=== PATIENT | female | born 1945 | race Two or more races ===

== ENCOUNTER 2024-09-24 13:52 | Emergency (ER) | payer OTHER ==
[~2024-09-24] VITALS: Ht 157.5 cm; Wt 75.9 kg
--- NOTE | 2024-09-24 14:22 | ED.PDOC ---
Musculoskeletal HPI Comments 79 YEAR-OLD FEMALE PRESENTS TO THE ED VIA WHEELCHAIR WITH A CHIEF COMPLAINT OF LEFT SHOULDER PAIN S/P TRAUMA. PATIENT STATES THAT SHE WAS COMING OUT OF THE BANK, LOST BALANCE, FELL, AND HIT HER SHOULDER ON THE CURB. PATIENT STATES THAT SINCE THE INCIDENT, SHE HAS EXPERIENCED LEFT SHOULDER PAIN WITH ASSOCIATED SYMPTOMS OF DIZZINESS AND NAUSEA. PATIENT HAS NO FURTHER SYMPTOMS AT THIS TIME AND OTHERWISE DENIES SYMPTOMS OF CHEST PAIN, SYNCOPE, EMESIS, OR HEADACHE. PATIENT IS ALERT, ORIENTED X 4, AND HAS STEADY GAIT. Chief Complaint: Fall Injury Time Seen by MD: 14:15 Reviewed Notes: Medications, Allergies ( ) Allergies: Coded Allergies: Erythromycin (Verified Allergy, Unknown, 09/24/24) Home Meds Active Scripts Acetaminophen (Tylenol 8 Hour Arthritis) 650 Mg Tab, 650 MG PO TID, #30 TAB Prov:SCARLETT DEUTSCH 09/24/24 Information Source: Patient Mode of Arrival: Wheelchair Location: Left Extremity Location: Shoulder Timing: Hours Severity: Moderate Pain: Moderate Circumstances: Fall Onset of Symptoms: After Trauma Symptoms: Pain Associated signs and symptoms: Shoulder pain (LEFT ) Past Medical History PAST MEDICAL HISTORY: CKF, High Lipids Surgical History: Appendectomy, Tubal Ligation GROUP BURNER MACHINE History: No Pertinent GROUP BURNER MACHINE History Family History Family History: Reviewed,noncontributory to illness, No family hx of Cancer, No family hx of DM, No family hx of Heart edvin, No family hx of HTN, No family hx ofKidney edvin, No family hx of Liver edvin, No family hx of Lung edvin, No family hx of Stroke Social History Smoker: Non-Smoker Alcohol: Denies ETOH Use Drugs: Denies Drug Use Lives In: Home Constitutional: denies: chills, diaphoresis, fatigue, fever, malaise, sweats, weakness, others EENTM: denies: blurred vision, double vision, ear bleeding, ear discharge, ear drainage, ear pain, ear ringing, eye pain, eye redness, hearing loss, mouth pain, mouth swelling, nasal discharge, nose bleeding, nose congestion, nose pain, photophobia, tearing, throat pain, throat swelling, voice changes, others Respiratory: denies: cough, hemoptysis, orthopnea, SOB at rest, shortness of breath, SOB with excertion, stridor, wheezing, others Cardiovascular: denies: chest pain, dizzy spells, diaphoresis, Dyspnea on exertion, edema, irregular heart beat, left arm pain, lightheadedness, palpitations, PND, syncope, others Gastrointestinal: denies: abdomen distended, abdominal pain, blood streaked bowels, constipated, diarrhea, dysphagia, difficulty swallowing, hematemesis, melena, nausea, poor appetite, poor fluid intake, rectal bleeding, rectal pain, vomiting, others Genitourinary: denies: abnormal vagina bleeding, burning, dyspareunia, dysuria, flank pain, frequency, hematuria, incontinence, pain, , vagina discharge, urgency, others Neurological: denies: dizziness, fainting, headache, left sided numbness, left sided weakness, numbness, paresthesia, pre-existing deficit, right sided numbness, right sided weakness, seizure, speech problems, tingling, tremors, weakness, others Musculoskeletal: reports: joint pain, joint swelling, muscle pain, others (LEFT SHOULDER PAIN); denies: back pain, gout, muscle stiffness, neck pain Integumetry: denies: bruises, change in color, change in hair/nails, dryness, laceration, lesions, lumps, rash, wounds, others Allergic/Immunocompromised: denies: Difficulty Healing, Frequent Infections, Hives, Itching, others Hematologic/Lymphatic: denies: anemia, blood clots, easy bleeding, easy bruising, swollen glands, others Endocrine: denies: excessive hunger, excessive sweating, excessive thirst, excessive urination, flushing, intolerance to cold, intolerance to heat, unexplained weight gain, unexplained weight loss, others Psychiatric: denies: anxiety, bipolar disorder, depression, hopeless, panic di sorder, schizophrenia, sleepless, suicidal, others All Other Systems: Reviewed and Negative Physical Exam General Appearance: No Apparent Distress, Normal HEENT: Normal ENT Inspection, PERRL/EOMI, Pharynx Normal, TMs Normal Neck: Full Range of Motion, Non-Tender, Normal, Normal Inspection Respiratory: Chest Non-Tender, Lungs Clear, No Accessory Muscle Use, No Respiratory Distress, Normal Breath Sounds Cardiovascular: No Edema, No JVD, No Murmur, No Gallop, Normal Peripheral Pulses, Regular Rate/Rhythm Breast Exam: Deferred Gastrointestinal: No Organomegaly, Non Tender, No Pulsatile Mass, Normal Bowel Sounds, Soft Genitalia: Deferred Pelvic: Deferred Rectal: Deferred Extremities: Decreased range of motion, No calf tenderness, Normal capillary refill, No pedal edema, Tender (AND DEFORMITY ON LEFT SHOULDER, NO BONY TENDERNESS AND SWELLING. ) Musculoskeletal : Apperance: Normal Neurologic: Alert, recording studio intern II-XII nml as Tested, No Motor Deficits, Normal Affect, Normal Mood, No Sensory Deficits Cerebellar Function: Normal Reflexes: Normal Skin: Dry, Normal Color, Warm Peripheral Pulses: 2+ carotid (R), 2+ carotid (L), 2+ Radial (R), 2+ Radial (L) Lymphatic: No Adenopathy Was a procedure done? Was a procedure done?: Yes Sedation Sedation?: No Reduction Indication: Dislocation (LEFT SHOULDER DISLOCATION) Sedation: Other (NORCO PAIN MEDICATION) Intra-articular anesthetic joselyn: No Post-reduction x-ray show: Reduction, Good Alignment Informed consent obtained: No Risks/benefits/alt described: Yes Notes PATIENT'S LEFT SHOULDER WAS REDUCED BY SUPINATION AND PULLING HER LEFT SHOULDER INTO PLACE. A "CLICK" WAS HEARD AND FELT AND DISLOCATION WAS SUCCESSFULLY REDUCED. PATIENT TOLERATED WELL. PATIENT'S POST-REDUCTION X RAY REVEALED CORRECT ANATOMICAL ALIGNMENT. Differential Diagnosis EXT Differential Diagnosis: Fracture, Sprain, Dislocation, Strain X-Ray, Labs, Meds, VS Vital Signs Date Time Temp Pulse Resp B/P (MAP) Pulse Ox O2 Delivery O2 Flow Rate FiO2 09/24/24 14:36 97.6 88 16 185/6 (65) 98 97.6 X-Ray, Labs, Meds, VS Comment EXTERNAL MEDICAL RECORDS: NONE INDEPENDENT HISTORIANS: NONE SOCIAL DETERMINANTS OF HEALTH: NONE LABS ORDERED: NONE REVIEWED AND INTERPRETED RESULTS: NONE IMAGING ORDERED: L SHOULDER 2+ VIEW XRAY, XR SHOULDER LT (POST-REDUCTION) TREATMENTS ORDERED: NORCO 5/325MG PO, SHOULDER IMMOBILIZER APPLIED TO PATIENT'S LEFT SHOULDER. PROCEDURES DONE: CLOSED REDUCTION OF LEFT SHOULDER PATIENT'S CASE AND RESULTS HAVE BEEN DISCUSSED WITH THE ED ATTENDING PHYSICIAN AND THEY AGREE WITH MY PLAN OF CARE. PATIENT DISCHARGED HOME WITH RX: [TYLENOL 650MG] I HAVE DISCUSSED IMAGING AND LAB RESULTS WITH THE PATIENT AND HAVE INSTRUCTED T HE PATIENT TO FOLLOW UP WITH THEIR PCP IN 1-2 DAYS. THE PATIENT FULLY UNDERSTANDS THEIR RESULTS AND ARE AWARE THEY NEED TO FOLLOW UP WITH THEIR PCP FOR FURTHER EVALUATION IF THEIR SYMPTOMS PERSIST. Images Reviewed?: Images reviewed and evaluated by me Time of 1ST Reevaluation: 15:10 Reevaluation 1ST: Improved Patient Education/Counseling: Diagnosis, Treatment, Need For Follow Up Family Education/Counseling: Diagnosis, Treatment, Need For Follow Up Medical Screening: No EMC Exist At This Time Departure 1 Departure Time of Disposition: 15:10 Impression: Primary Impression: Anterior dislocation of left shoulder Qualified Codes: S43.015A - Anterior dislocation of left humerus, initial encounter Additional Impression: Status post fall Disposition: HOME / SELF CARE / HOMELESS Condition: Stable Additional Instructions: FOLLOW-UP WITH PCP IN 1 TO 2 DAYS FOR REFERRAL TO [facility]MIN[facility]. TAKE MEDICATIONS PRESCRIBED. RETURN TO ED FOR ANY NEW OR WORSENING SYMPTOMS. e-Prescriptions Acetaminophen (Tylenol 8 Hour Arthritis) 650 Mg Tab 650 MG PO TID, #30 TAB Prov: SCARLETT DEUTSCH 09/24/24 Discharged With: Self, Relative (DAUGHTER) Critical Care Note Critical Care Time?: No Stability Stability form required: No Heart Score Heart Score: Heart Score Response (Comments) Value History N/A 0 EKG N/A 0 Age N/A 0 Risk Factors N/A 0 Troponin N/A 0 Total 0 I personally scribed for SCARLETT DEUTSCH ([email or web address]) on 09/24/24 at 14:22. Electronically submitted by Lynn Goins ([employer]). I personally scribed for SCARLETT DEUTSCH ([email or web address]) on 09/24/24 at 14:24. Electronically submitted by Lynn Goins ([employer]). I personally scribed for SCARLETT DEUTSCH ([email or web address]) on 09/24/24 at 14:42. Electronically submitted by Gerardo Huynh ([email or web address]). SCARLETT DEUTSCH Sep 24, 2024 14:22
[2024-09-24 14:36] VITALS: BP 185/63; TEMP 97.6
--- NOTE | 2024-09-24 14:44 | DVH ---
EXAM: XY L SHOULDER 2+ VIEW XRAY CLINICAL INDICATION: FALL TECHNIQUE: XY L SHOULDER 2+ VIEW XRAY Comparison: None FINDINGS/IMPRESSION: Anterior/inferior dislocation of the right humeral head.
[2024-09-24 14:45] VITALS: PULSE 72; RESP 21; O2SAT 96
[2024-09-24] MEDS ORDERED: ACET-1080 PO (14:49)
[2024-09-24] MEDS: HYDROcodone-ACET 5/325MG TAB PO ONE (14:50)
--- NOTE | 2024-09-24 14:58 | DVH ---
CLINICAL INDICATION: s/p shoulder reduction ; pain TECHNIQUE: 1 radiographic views of the left shoulder were obtained. Comparison: XY L SHOULDER 2+ VIEW XRAY on DOS: 09/24/24 FINDINGS/IMPRESSION: Interval reduction of previously seen left shoulder dislocation. Possible Hill-Sachs fracture deform ity.
== END 2024-09-24 15:08 | disposition home or self-care (01) ==
LOC: ER 13:52
DX: S43.015A Anterior dislocation of left humerus, initial encounter (principal); Z88.1 Allergy status to other antibiotic agents; Z90.49 Acquired absence of other specified parts of digestive tract; Z98.890 Other specified postprocedural states; W19.XXXA Unspecified fall, initial encounter; Y93.89 Activity, other specified; Y92.89 Other specified places as the place of occurrence of the external cause; Y99.8 Other external cause status
CPT/HCPCS: 23650; 73020; 73030